=== PATIENT | male | born 1985 | race Caucasian/White ===

== ENCOUNTER 2022-12-13 13:23 | Emergency (ER) | payer SELFPAY ==
[2022-12-13 13:27] VITALS: BP 105/70; PULSE 74; RESP 18; TEMP 36.5; O2SAT 99
--- NOTE | 2022-12-13 16:46 | NUR.NOTE ---
Nursing Note: PT stated that he was going to miss the bus, so he left without being seen, Dose of suboxone was confirmed with MARIELA in [place], [place] 4mg last dose was 12/07/2022
== END 2022-12-13 14:22 | disposition left against medical advice (07) ==
LOC: ER 13:49
DX: Z53.21 Procedure and treatment not carried out due to patient leaving prior to being seen by health care provider (principal)